=== PATIENT | male | born 1950 | race Two or more races ===

== ENCOUNTER 2017-04-06 07:16 | Day surgery (SDC) | payer BC ==
--- NOTE | 2017-04-01 23:09 | HP ---
CC: Dr. Capone * HISTORY AND PHYSICAL: DATE OF PLANNED ADMISSION AND SURGERY: 04/06/17 HISTORY OF PRESENT ILLNESS: Mr. Rojas is a 66-year-old male who is admitted with right renal calculi for shockwave lithotripsy. I have been following Mr. Rojas for several years because of bladder outlet obstruction, history of urinary retention, and history of renal calculus disease. In July 2014, he had an episode of right renal colic and he passed a 5 mm calculus spontaneously. He has done well and has had no recurrences of his renal colic. He was evaluated in the office and had renal ultrasound and a KUB, and the study showed 2 right renal calculi each measuring about 5 mm. He had an episode of urinary retention in February 2015. The episode occurred during his travel overseas and he required [place]imes catheter placement in airport clinic. He was placed on tamsulosin and on finasteride, and he has done well with resolution of the urinary retention. Recent evaluation showed good bladder emptying. The patient does lots of travel overseas and he is concerned that he will develop a right renal colic during his travel. He wanted to have treatments of his renal calculi. PAST MEDICAL HISTORY AND SYSTEM REVIEW: He is very healthy. MEDICATIONS: His only other medication is Synthroid for hypothyroidism. ALLERGIES: He denies any allergies to medications. REVIEW OF SYSTEMS: He denies any cardiac or pulmonary diseases or symptoms. FAMILY HISTORY: Negative. PHYSICAL EXAMINATION GENERAL: Pleasant, healthy-looking male. VITAL SIGNS: Blood pressure 110/76, pulse of 78, oxygen saturation 97%. HEART: Regular and rhythmic. No murmurs. LUNGS: Clear. ABDOMEN: Soft. No masses, no tenderness, and no CVA tenderness. RECTAL: Showed a moderately enlarged, but nonsuspicious prostate. LABORATORY DATA: Urinalysis is negative. IMPRESSION: 1. Two non-obstructing right renal calculi, each about 5 mm in size. 2. Benign prostatic hyperplasia and bladder outlet obstruction with good response to treatment. 3. Hypothyroidism, on treatment. PLAN: Shockwave lithotripsy of the right renal calculi. I discussed the plans with the patient. Patient understands that his renal calculi are non-obstructing and can be observed considering their size, they can pass spontaneously. However, it is indicated to treat the stones prophylactically considering his travels pattern, especially when he is visiting areas with limited available medical care. I discussed the procedure with him, some of the potential complications including hematuria, postoperative renal colic. All his questions were answered. [id number]/[facility] #: [id number] LIZY
[~2017-04-06 07:16] MED LIST: Buffered Lidocaine 0.9% SYRIN* 5 ML/SYR SYRINGE INTRADERM ONE; Buffered Lidocaine 0.9% SYRIN* 5 ML/SYR SYRINGE ONE; Dexamethasone IV* 4 MG/ML 1 ML (4 MG) IV SLOW PU ONE; Dexamethasone IV* 4 MG/ML 1 ML (4 MG) ONE; Famotidine IV* 10 MG/ML 2 ML (20 mg) IV ONE; Famotidine IV* 10 MG/ML 2 ML (20 mg) ONE; cefTRIAXone(*) 2 GM ADDV.VIAL IVPB ONE
--- NOTE | 2017-04-06 08:05 | RAD ---
Indication: Pre lithotripsy assessment urolithiasis. Comparison: November 12, 2016 Technique: Supine view of the abdomen. Report: Unremarkable bowel gas pattern. Moderate stool in the colon without significant rectal distension. Typical partial obscuration of the renal fossa and course of the ureters by bowel contents Small stones at the mid and lower pole of the RIGHT kidney measuring up to 4 mm maximum dimension. No definitive LEFT urolithiasis visualized. Nonspecific calcification at the RIGHT para midline pelvis unchanged compared with the abdomen radiograph from October 13, 2014 likely a phlebolith. Unremarkable soft tissue contours. IMPRESSION: Unchanged RIGHT nephrolithiasis.
[2017-04-06] MEDS ORDERED: Midazolam* 1 MG/ML 5 ML VIAL (5 MG) ONE (08:58)
[2017-04-06] MEDS ORDERED: DiMENhydriNATE IV* 50 MG/ML VIAL IV PUSH PRN (09:28)
[2017-04-06] MEDS ORDERED: oxyCODONE/Acetamin 5/325 MG* TAB PO PRN (09:28)
[2017-04-06] MEDS ORDERED: Ondansetron INJ* 2 MG/ML VIAL IV PRN (09:28)
[2017-04-06] MEDS ORDERED: fentaNYL* 50 MCG/ML 2 ML VIAL (100 MCG VIAL) IV PRN (09:28)
[2017-04-06] MEDS ORDERED: Ondansetron INJ* 2 MG/ML VIAL ONE (09:58)
[2017-04-06] MEDS ORDERED: fentaNYL* 50 MCG/ML 2 ML VIAL (100 MCG VIAL) ONE (09:58)
[2017-04-06] MEDS ORDERED: Ketorolac INJ* 30 MG/ML 1 ML VIAL ONE (09:58)
[2017-04-06] MEDS ORDERED: HYDROcodone/ACETAMIN 5-325 MG* 1 TAB PO PRN (10:51)
[2017-04-06 11:45] VITALS: BP 116/75
--- NOTE | 2017-04-07 09:46 | OP ---
CC: Dr. Capone * DATE OF OPERATION: 04/06/17 - [facility] DATE OF : 46 SURGEON: Ezequiel Cox MD ANESTHESIOLOGIST: Akash Murillo MD ANESTHESIA: IV sedation with MAC. PRE-OP DIAGNOSIS: Right renal calculi (5-6 mm each). POST-OP DIAGNOSIS: Right renal calculi (5-6 mm each). OPERATIVE PROCEDURE: Shock wave lithotripsy of right renal calculi. INDICATION FOR PROCEDURE: Mr. Rojas is a 66-year-old white male who has past history of renal calculus disease and renal colics. On his followup visit, he was noted to have two nonobstructing right renal calculi measuring 5-6 mm each. One calculus is located in the mid pole calyx and the other calculus in the lower pole calyx. Because of the patient's pattern of travel whereby he frequently goes overseas and to countries where there is no good medical care. Because he was concerned about having other episodes of renal colic, the shock wave lithotripsy was advised and accepted. PATHOLOGY: Preoperative KUB confirmed the presence of two radiopaque right renal calculi as described above. DESCRIPTION OF PROCEDURE: The patient was placed in the supine position on the shock wave lithotripsy table under intravenous sedation with anesthesia monitoring. The calculus in the mid pole calyx was visualized with fluoroscopy and the position of the generator and of the patient were adjusted to have that stone in the focus of the shock waves. A total of 800 shocks were then delivered at the rate of 90 shocks per minute. A 3 minutes break was taken after the initial 300 shocks. The proper positioning and fragmentation of the stone were monitored periodically. At 700 shocks there seemed to have a good fragmentation with the stone breaking into three pieces. Attention was then directed to the lower pole calyx stone. It was similarly treated and there was very good fragmentation. A total of about 1700 shocks were then delivered for both stones. The patient tolerated the procedure well and left the operating room in good condition. [id number]/[facility] #: [id number] MTDD
== END 2017-04-06 11:46 | disposition home or self-care (01) ==
LOC: OR 07:16
PROVIDERS: ATTEND Urology
DX: N20.0 Calculus of kidney (principal); E03.9 Hypothyroidism, unspecified; E66.9 Obesity, unspecified; N40.1 Benign prostatic hyperplasia with lower urinary tract symptoms; N13.8 Other obstructive and reflux uropathy
CPT/HCPCS: 74000; J0696; J1100; J1885; J2250; J2405; J3010